=== PATIENT | male | born 1935 | race Caucasian/White ===

== ENCOUNTER → 2018-01-22 07:26 | Outpatient (CLI) | payer MEDICARE, SELFPAY ==
[2018-01-22 11:44] LABS: AST(SGOT) 23 U/L (15-37); Alanine Aminotransfer ALT/SGPT 21 U/L (16-61); Albumin, Serum 3.5 g/dL (3.2-5.0); Alkaline Phosphatase 78 U/L (45-117); Bilirubin, Direct 0.25 mg/dL (0.00-0.30); Cholesterol 119 mg/dL (200); Globulin 3.7 g/dL (2.2-4.2); High Density Lipoprotein 50 mg/dL; Protein, Total 7.2 g/dL (6.4-8.2); Triglycerides 93 mg/dL; Very Low Density Lipoprotein 19 mg/dL (5-40)
== END ==
PROVIDERS: Family Provider Family Medicine; PCP Family Medicine; Visit Provider Physician Assistant Medical
DX: E78.5 Hyperlipidemia, unspecified (principal); Z79.899 Other long term (current) drug therapy
CPT/HCPCS: 36415; 80061; 80076

== ENCOUNTER → 2018-07-06 08:18 | Outpatient (CLI) | payer MEDICARE, SELFPAY ==
[2018-01-25 09:07] VITALS: BMI 34.2
[2018-07-06 10:40] LABS: AST(SGOT) 23 U/L (15-37); Alanine Aminotransfer ALT/SGPT 25 U/L (16-61); Albumin, Serum 3.6 g/dL (3.2-5.0); Alkaline Phosphatase 86 U/L (45-117); Bilirubin, Direct 0.29 mg/dL (0.00-0.30); Cholesterol 139 mg/dL (200); Globulin 3.8 g/dL (2.2-4.2); High Density Lipoprotein 54 mg/dL; Protein, Total 7.4 g/dL (6.4-8.2); Triglycerides 99 mg/dL; Very Low Density Lipoprotein 20 mg/dL (5-40)
== END ==
PROVIDERS: Family Provider Family Medicine; PCP Family Medicine; Referring Provider Physician Assistant Medical; Visit Provider Physician Assistant Medical
DX: E78.5 Hyperlipidemia, unspecified (principal)
CPT/HCPCS: 36415; 80061; 80076

== ENCOUNTER → 2018-07-15 06:32 | Outpatient (CLI) | payer MEDICARE, SELFPAY ==
[2018-07-07 10:32] VITALS: BMI 34.7
--- NOTE | 2018-07-15 06:34 | ECHOCS_ITS ---
Reason For Study: CAD/ASHD Procedure This was a 2D Doppler, Color Flow transthoracic echocardiogram. The study was technically difficult. Contrast injection was performed. Exam performed in department. Left Ventricle Normal LV size. Segmental dysfunction with preserved ejection fraction (see wall motion). The estimated ejection fraction is 55 %. No evidence for diastolic dysfunction. Infero-Basal: Hypokinetic. Mid-Inferior: Hypokinetic. Mid-inferoseptal : Hypokinetic. Inferior [place] : Hypokinetic. Right Ventricle Normal RV size. Normal systolic function. [place]ria Normal left atrium. Normal right atrium. No doppler evidence for ASD. Mitral Valve There is no mitral annular calcification. Normal mitral valve. Trivial mitral valve insufficiency. Tricuspid Valve Normal tricuspid valve. Mild tricuspid valve insufficiency. Right ventricular systolic pressure estimated to be 33 mmHg. Aortic Valve Trisinus/trileaflet aortic valve. Mild focal aortic valve calcification. Trivial aortic valve insufficiency. Pulmonic Valve The pulmonic valve is not well visualized. Great Vessels Normal sized aortic root. Pericardium/Pleural No pericardial effusion. Medication 22 gauge I.V. with prn adaptor inserted into left arm. Diluted definity 4ml given slow IV push to enhance endocardial definition. MMode/2D Measurements & Calculations LVIDd: 4.7 cm IVSd: 1.1 cm Ao root diam: 3.7 cm LVIDs: 2.9 cm LVPWd: 1.1 cm LA dimension: 3.8 cm FS: 37.5 % LAV(MOD-bp): 37.9 ml LVAd ap4: 35.8 cm2 SV(MOD-sp4): 67.5 ml LAV(MOD-bp) Indexed: 17.4 ml/m2 EDV(MOD-sp4): 126.8 ml LAV(MOD-sp2): 35.2 ml EDV(sp4-el): 134.0 ml LAV(MOD-sp4): 40.4 ml LVAs ap4: 23.5 cm2 ESV(MOD-sp4): 59.2 ml ESV(sp4-el): 62.4 ml EF(MOD-sp4): 53.3 % EF(sp4-el): 53.4 % SV(sp4-el): 71.6 ml LA A4 area: 16.1 cm2 Time Measurements MV dec time: 0.40 sec Doppler Measurements & Calculations MV E max connor: 38.1 cm/sec Lat Peak E' Connor: 4.3 cm/sec Med Peak E' Connor: 4.7 cm/sec MV A max connor: 77.8 cm/sec E/E' lat: 9.0 E/E' med: 8.1 MV E/A: 0.49 MV V2 max: 79.6 cm/sec MV P1/2t max connor: 48.5 cm/sec Ao V2 max: 109.1 cm/sec MV max P.5 mmHg MV P1/2t: 92.8 msec Ao max P.8 mmHg MV V2 mean: 38.5 cm/sec Ao V2 mean: 75.3 cm/sec MV mean P.71 mmHg MV dec slope: 153.2 cm/sec2 Ao mean P.6 mmHg MV V2 VTI: 18.9 cm MVA(P1/2t): 2.4 cm2 Ao V2 VTI: 21.4 cm LV V1 max: 91.3 cm/sec PA V2 max: 94.4 cm/sec TR max connor: 273.5 cm/sec LV V1 max P.3 mmHg TR max P.9 mmHg LV V1 mean P.7 mmHg LV V1 mean: 61.1 cm/sec LV V1 VTI: 20.6 cm Interpretation Summary The study was technically difficult. Contrast injection was performed. Segmental dysfunction with preserved ejection fraction (see wall motion). The estimated ejection fraction is 55 %. Trivial mitral valve insufficiency. Mild tricuspid valve insufficiency. Mild focal aortic valve calcification. Trivial aortic valve insufficiency. Right ventricular systolic pressure estimated to be 33 mmHg. No evidence for diastolic dysfunction. Ordering Physician: Matthew Cunningham Referring Physician: Matthew Cunningham Performed By: Barrington Alvarenga [facility]
--- NOTE | 2018-07-15 10:00 | STRESSREP ---
Stress Test Report Date: 07/15/2018 Procedure: Exercise tolerance test/imaging study Indications: Shortness of breath/dyspnea on exertion; CAD; status post PCI Consent: Per the patient Procedure: The patient exercised on a Shaji protocol for 4 minutes completing Stage I and 1 minute of Stage II achieving a peak heart rate of 131 bpm (95 % predicted maximal heart rate) with a peak blood pressure 162/98 mmHg and a peak MET capacity of 5 METs. The baseline ECG demonstrated Normal sinus rhythm . The peak exercise ECG demonstrated somatic/motion artifact with no obvious ECG changes . There was a rare PVCs during exercise and recovery . The functional capacity was considered average . There was no complaint of chest discomfort during exercise or recovery. The examination was discontinued secondary to dyspnea . Impression: 1. Technically adequate (percent predicted maximal heart rate greater than 85%) exercise tolerance test 2. Peak exercise ECG Demonstrated somatic/motion artifact with no obvious ECG changes 3. There were no cardiac dysrhythmias pretest, during exercise, or recovery 4. Nuclear images pending Myocardial perfusion imaging study: Technique: The patient was injected with 14.3 mCi of technetium 99m Cardiolite and subsequently rest SPECT Cardiolite nuclear imaging was obtained in the horizontal long, vertical long, and short axis views. The patient exercised on a Shaji protocol for 4 minutes completing Stage 1 and 1 minute of Stage II achieving a peak heart rate of 131 bpm (95 % predicted maximal heart rate) with a peak blood pressure 162/98 mmHg and a peak MET capacity of 5 METs. The patient was injected with 44.7 mCi of technetium 99m Cardiolite and subsequently stress SPECT Cardiolite nuclear imaging was obtained in the horizontal long, vertical long, and short axis views. A gated Cardiolite study at peak stress was obtained. Interpretation: Rest and stress SPECT Cardiolite nuclear imaging status post realignment, normalization, and attenuation correction, demonstrates The appearance of a small area of subtle diminished tracer uptake near the lateral apical segments without significant change between rest and stress . There is end systolic thickening and brightening. The gated Cardiolite study demonstrates myocardial thickening and inward wall motion. The reported LVEF is 61 %. Impression: 1. Rest and stress SPECT Cardiolite nuclear imaging demonstrate a small area of subtle diminished tracer uptake near the lateral apical segments without significant change between rest and stress appearing compatible with physiologic apical thinning with no myocardial perfusion changes considered diagnostic for associated stress induced myocardial ischemia or previous myocardial injury/infarction . 2. The gated Cardiolite study reports an LVEF of 61 %. This note was generated with [employer] software. It may contain incorrect words, spelling, and punctuation that were not noted in checking the note before signing.
--- OUTSIDE RECORDS SUMMARY | 2018-09-18 18:56 | XMS RPT_ITS ---
:1935 Author Organization OHIP Care Team Providers Name Role Phone Donna Grossman Attending Unavailable Donna Grossman Referring Unavailable Jolliff, Melissa Primary Care Unavailable Matthew Cunningham Attending Unavailable Brianiff, Melissa Referring Unavailable Donna Grossman Attending Unavailable Donna Grossman Referring Unavailable Jolliff, Melissa Primary Care Unavailable Nolt, Kylie Attending Unavailable MoodisMatthew black Attending Unavailable Jolliff, Melissa Referring Unavailable Jolliff, Melissa Primary Care Unavailable MoodMatthew samuels Attending Unavailable Moodarvind Matthew Referring Unavailable Jolliff, Melissa Primary Care Unavailable PROBLEMS PROBLEMS DATE TYPE CONDITION / CODE ATTENDING STATUS SOURCE 07/07/2018 Unknown E78.5 - Matthew Cunningham Active [facility] Hyperlipidemia, Community unspecified / Hospital E78.5(ICD-10) Repository 07/07/2018 Unknown I25.10 - Matthew Cunningham Active [facility] Atherosclerotic heart Community disease of [facility] coronary artery Repository without angina pectoris / I25.10(ICD-10) 07/07/2018 Unknown Z98.61 - Coronary Matthew Cunningham Active [facility] angioplasty status / Community Z98.61(ICD-10) Hospital Repository 07/07/2018 Unknown I48.0 - Paroxysmal Matthew Cunningham Active [facility] atrial fibrillation / Community I48.0(ICD-10) Hospital Repository PROCEDURES PROCEDURES No Procedure Records FoundRESULTS RESULTS ECHO, COMPLETE W/ Observed: 07/15/2018 Status: F Source: [place] CONTRAST 8:08 PM [facility] [place] [facility] Cardiovascular Services [address] [place] [address] Echo Complete W/ Contrast 07/15/18 0851 MR#: [id number] Acct: [id number] Name: MATTHEW VALENZUELA Rep #: [id number] : 1935 82 From: Matthew Cunningham MD Attending Dr: Matthew Cunningham MD Status: REG CLI Ordering Dr: Matthew Cunningham MD Date: 07/15/18 Location: [facility] Sex: M C Admitted: Reason For Study: CAD/ASHD Procedure This was a 2D Doppler, Color Flow transthoracic echocardiogram. The study was technically difficult. Contrast injection was performed. Exam performed in department. Left Ventricle Normal LV size. Segmental dysfunction with preserved ejection fraction (see wall motion). The estimated ejection fraction is 55 %. No evidence for diastolic dysfunction. Infero-Basal: Hypokinetic. Mid-Inferior: Hypokinetic. Mid-inferoseptal : Hypokinetic. Inferior [place] : Hypokinetic. Right Ventricle Normal RV size. Normal systolic function. Atria Normal left atrium. Normal right atrium. No doppler evidence for ASD. Mitral Valve There is no mitral annular calcification. Normal mitral valve. Trivial mitral valve insufficiency. Tricuspid Valve Normal tricuspid valve. Mild tricuspid valve insufficiency. Right ventricular systolic pressure estimated to be 33 mmHg. Aortic Valve Trisinus/trileaflet aortic valve. Mild focal aortic valve calcification. Trivial aortic valve insufficiency. Pulmonic Valve The pulmonic valve is not well visualized. Great Vessels Normal sized aortic root. Pericardium/Pleural No pericardial effusion. Medication 22 gauge I.V. with prn adaptor inserted into left arm. Diluted definity 4ml given slow IV push to enhance endocardial definition. MMode/2D Measurements AND Calculations LVIDd: 4.7 cm IVSd: 1.1 cm Ao root diam: 3.7 cm LVIDs: 2.9 cm LVPWd: 1.1 cm LA dimension: 3.8 cm FS: 37.5 % LAV(MOD-bp): 37.9 ml LVAd ap4: 35.8 cm2 SV(MOD-sp4): 67.5 ml LAV(MOD-bp) Indexed: 17.4 ml/m2 EDV(MOD-sp4): 126.8 ml LAV(MOD-sp2): 35.2 ml EDV(sp4-el): 134.0 ml LAV(MOD-sp4): 40.4 ml LVAs ap4: 23.5 cm2 ESV(MOD-sp4): 59.2 ml ESV(sp4-el): 62.4 ml EF(MOD-sp4): 53.3 % EF(sp4-el): 53.4 % SV(sp4-el): 71.6 ml LA A4 area: 16.1 cm2 Time Measurements MV dec time: 0.40 sec Doppler Measurements AND Calculations MV E max connor: 38.1 cm/sec Lat Peak E' Connor: 4.3 cm/sec Med Peak E' Connor: 4.7 cm/sec MV A max connor: 77.8 cm/sec E/E' lat: 9.0 E/E' med: 8.1 MV E/A: 0.49 MV V2 max: 79.6 cm/sec MV P1/2t max connor: 48.5 cm/sec Ao V2 max: 109.1 cm/sec MV max P.5 mmHg MV P1/2t: 92.8 msec Ao max P.8 mmHg MV V2 mean: 38.5 cm/sec Ao V2 mean: 75.3 cm/sec MV mean P.71 mmHg MV dec slope: 153.2 cm/sec2 Ao mean P.6 mmHg MV V2 VTI: 18.9 cm MVA(P1/2t): 2.4 cm2 Ao V2 VTI: 21.4 cm LV V1 max: 91.3 cm/sec PA V2 max: 94.4 cm/sec TR max connor: 273.5 cm/sec LV V1 max P.3 mmHg TR max P.9 mmHg LV V1 mean P.7 mmHg LV V1 mean: 61.1 cm/sec LV V1 VTI: 20.6 cm Interpretation Summary The study was technically difficult. Contrast injection was performed. Segmental dysfunction with preserved ejection fraction (see wall motion). The estimated ejection fraction is 55 %. Trivial mitral valve insufficiency. Mild tricuspid valve insufficiency. Mild focal aortic valve calcification. Trivial aortic valve insufficiency. Right ventricular systolic pressure estimated to be 33 mmHg. No evidence for diastolic dysfunction. Ordering Physician: Matthew Cunningham Referring Physician: Matthew Cunningham Performed By: Barrington Alvarenga RCS 07/15/182007 Date Matthew Cunningham MD CC: Melissa Cui MD; Matthew Cunningham MD Date Dictated: 07/15/18850 Date Transcribed: 07/15/182007 Sports Clerk: Signed STRESS REPORT Observed: 07/15/2018 Status: F Source: [place] 10:06 AM [facility] [place] [facility] Cardiovascular Services [facility] [place] [address] MR#: [id number] Acct: [id number] Name: MATTHEW VALENZUELA Rep #: [id number] : 1935 82 From: Matthew Cunningham MD Primary Care: Melissa Cui MD Status: REG CLI Ordering Dr: Sex: M C Stress Test Report Date: 07/15/2018 Procedure: Exercise tolerance test/imaging study Indications: Shortness of breath/dyspnea on exertion; CAD; status post PCI Consent: Per the patient Procedure: The patient exercised on a Shaji protocol for 4 minutes completing Stage I and 1 minute of Stage II achieving a peak heart rate of 131 bpm (95 % predicted maximal heart rate) with a peak blood pressure 162/98 mmHg and a peak MET capacity of 5 METs. The baseline ECG demonstrated Normal sinus rhythm . The peak exercise ECG demonstrated somatic/motion artifact with no obvious ECG changes . There was a rare PVCs during exercise and recovery . The functional capacity was considered average . There was no complaint of chest discomfort during exercise or recovery. The examination was discontinued secondary to dyspnea . Impression: 1. Technically adequate (percent predicted maximal heart rate greater than 85%) exercise tolerance test 2. Peak exercise ECG Demonstrated somatic/motion artifact with no obvious ECG changes 3. There were no cardiac dysrhythmias pretest, during exercise, or recovery 4. Nuclear images pending Myocardial perfusion imaging study: Technique: The patient was injected with 14.3 mCi of technetium 99m Cardiolite and subsequently rest SPECT Cardiolite nuclear imaging was obtained in the horizontal long, vertical long, and short axis views. The patient exercised on a Shaji protocol for 4 minutes completing Stage 1 and 1 minute of Stage II achieving a peak heart rate of 131 bpm (95 % predicted maximal heart rate) with a peak blood pressure 162/98 mmHg and a peak MET capacity of 5 METs. The patient was injected with 44.7 mCi of technetium 99m Cardiolite and subsequently stress SPECT Cardiolite nuclear imaging was obtained in the horizontal long, vertical long, and short axis views. A gated Cardiolite study at peak stress was obtained. Interpretation: Rest and stress SPECT Cardiolite nuclear imaging status post realignment, normalization, and attenuation correction, demonstrates The appearance of a small area of subtle diminished tracer uptake near the lateral apical segments without significant change between rest and stress . There is end systolic thickening and brightening. The gated Cardiolite study demonstrates myocardial thickening and inward wall motion. The reported LVEF is 61 %. Impression: 1. Rest and stress SPECT Cardiolite nuclear imaging demonstrate a small area of subtle diminished tracer uptake near the lateral apical segments without significant change between rest and stress appearing compatible with physiologic apical thinning with no myocardial perfusion changes considered diagnostic for associated stress induced myocardial ischemia or previous myocardial injury/infarction . 2. The gated Cardiolite study reports an LVEF of 61 %. This note was generated with Your[employer] software. It may contain incorrect words, spelling, and punctuation that were not noted in checking the note before signing. 07/15/18 1006 <Electronically signed by Matthew Cunningham MD> Date Matthew Cunningham MD CC: Melissa Cui MD; Matthew Cunningham MD Date Dictated: 07/15/18 1000 Date Transcribed: 07/15/18 1000 Sports Clerk: PM Signed CARDIOLOGY VISIT Observed: 07/07/2018 Status: F Source: [place] REPORT 11:09 AM [facility] [place] [facility] [address] [place] [address] OFFICE VISIT Date of Service: 07/07/18 MR#: [id number] Acct: [id number] Name: MATTHEW VALENZUELA Rep #: [id number] : 1935 Provider: Matthew Cunningham MD Age/Sex: 82/M Location: [facility] [place] Status: Signed HPI HPI Details: MATTHEW VALENZUELA, is a 82 M who presents to the office today for outpatient cardiovascular follow-up. He notes his main concern is shortness of breath/dyspnea on exertion. He does not experience chest discomfort. There is been no orthopnea or PND or worsening peripheral pitting edema. There has been no near syncope or syncope. His lipid labs were checked yesterday. His total cholesterol was 139 with an LDL of 65 and HDL 54. His triglycerides were 99. Intake Vital Signs07/07/18 Height 5 ft 8 in 07/07/18 Weight: 228 lb 07/07/18 Body Mass Index (BMI) 34.7 07/07/18 Blood Pressure 124/84 H Intake Visit Reasons: 6 m fu Allergies clopidogrel [From Plavix] Allergy (Intermediate, Verified 07/07/18 10:32) Unknown Penicillins [PCN] Allergy (Verified 07/07/18 10:32) Swelling venom-honey bee [bee venom (honey bee)] Adverse Reaction (Verified 07/07/18 10:32) Other Medications lisinopril 5 mg tablet 5 mg PO DAILY #90 tab 12/17/17 [Rx Confirmed 07/07/18] antiarthritic combination no.2 900 mg tablet 900 mg PO QDAY tab 01/25/18 [History Confirmed 07/07/18] aspirin 325 mg tablet 325 mg PO QDAY 01/25/18 [History Confirmed 07/07/18] ibuprofen-diphenhydramine citrate 200 mg-38 mg tablet 2 cap PO QHS PRN 01/25/18 [History Confirmed 07/07/18] atorvastatin 80 mg tablet 80 mg PO QHS #90 tab 03/08/18 [Rx Confirmed 07/07/18] metoprolol succinate ER 25 mg tablet,extended release 24 hr 12.5 mg PO DAILY #45 tab 04/20/18 [Rx Confirmed 07/07/18] multivitamin tablet 1 tab PO DAILY 07/07/18 [History Confirmed 07/07/18] [facility] Medical History Patent foramen ovale (Chronic) History of myocardial infarction (Resolved) Paroxysmal atrial fibrillation (Chronic) 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 (Chronic) Hyperlipidemia (Chronic) Left bundle branch block (Chronic) Osteoarthritis (Chronic) Surgical History History of percutaneous transluminal coronary angioplasty (Chronic 10/2009) History of appendectomy (Resolved) History of bilateral knee replacement (Resolved) History of left inguinal hernia repair (Resolved) Social History Smoking Status: Never smoker alcohol intake: current caffeine: Yes ROS Const Const: Negative for fatigue, weakness, weight gain, weight loss, frequent falls or excessive sweating Eyes Eyes: Negative for change in vision, blurry vision or transient loss of vision ENT ENT: Negative for dizziness or balance problems Cardio Chest Pain: No Palpitations: No Edema: None Muscle aches with walking: None Resp Respiratory: Positive for SOB with activity (increased last year going up/downstairs); negative for SOB at rest GI GI: Negative vomiting or vomiting blood/hematemesis : Negative for hematuria Musc Musc: Negative for balance problems, muscle aches/ myalgia, muscle weakness or joint pain Skin Skin: Negative non-healing lesions or rash Neuro Neuro: Negative for weakness, blurry vision, dizziness, lightheadedness, frequent falls or orthostatic symptoms Amaury Hematologic/Lymphatic: Negative for easy bleeding Endo Endo: Negative for fatigue or excessive sweating Psych Psych: Negative for anxiety or depression Allergy Allergy/Immunology: Negative for hives, Negative for rash Cardiology Exam Const Appearance: cooperative, healthy appearing, comfortable, no acute distress, well developed and well groomed Nutritional Appearance: overweight Orientation: alert and oriented x3 Head Head: normal to inspection, normocephalic and atraumatic Ears: hearing grossly normal bilaterally Nose: external nose normal Eyes Eyelids: eyelids normal Conjunctivae: conjunctivae normal Pupils: PERRL EOM: EOM intact bilaterally Neck Neck: normal visual inspection and full ROM Carotids: normal carotid upstroke Chest Chest inspection: normal inspection of the chest and symmetric chest movement Auscultation: Bilateral: Clear to Auscultation Cardio Palpation: normal PMI Rhythm: regular rhythm Heart sounds: S1 normal, S2 normal and positive S4 GI GI: normal to inspection, bowel sounds present and soft Neuro General: alert, awake, oriented x3, gait normal, moves all extremities, no focal sensory deficit and no focal motor deficits Skin Skin: no rashes or lesions noted Extremities Pulses: Normal: Right Radial Pulse, Left Radial Pulse Lower Extremity Edema: +1: Left, Trace: Right Psych Psychological: normal affect Assessment AND Plan 1. Atherosclerosis of benton coronary artery of benton heart without angina pectoris I25.10 Plan At the present time it is unclear whether his shortness of breath is related to his cardiovascular disease process and would be considered an angina pectoris equivalent. Based upon his concerns superimposed on his known cardiovascular disease process it was felt prudent that he be reassessed for any changes in his left ventricular wall motion or systolic function or his coronary physiology. Thus he will undergo further evaluation with a transthoracic echocardiogram and an exercise tolerance test/imaging study. Depending upon the findings he may or may not need reevaluation in the cardiac catheterization laboratory Orders Orders: 2. H/O percutaneous transluminal coronary angioplasty Z98.61 RCA Plan He does have a history of remote RCA PCI. Again he will continue evaluation care as noted above. Orders Orders: 3. Paroxysmal atrial fibrillation I48.0 Plan He has had no recurrence of his history of paroxysmal atrial fibrillation. He will continue his current medical management and follow-up Orders Orders: 4. Hyperlipidemia, unspecified hyperlipidemia type E78.5 Plan His lipid profile was reviewed. He will continue medical management. He will have his lipids assessed again in approximately 6 months Orders Orders: Plan Detail Additional Comments Thank you for allowing me to participate in the care of your patient. Please don't hesitate to call if any issues arise. This note was generated using a voice recognition system and there may be incorrect words, spelling or punctuation that were not noted when reviewing the office note prior to saving. 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 Coronary Disease-Associated Artery/Lesion type: benton artery H/O percutaneous transluminal coronary angioplasty Z98.61 Paroxysmal atrial fibrillation I48.0 Hyperlipidemia, unspecified hyperlipidemia type E78.5 Hyperlipidemia type: unspecified Coding Level of Care Code Off vis,est,level 4 Diagnoses Atherosclerosis of benton coronary artery of benton heart without angina pectoris I25.10 Coronary Disease-Associated Artery/Lesion type: benton artery H/O percutaneous transluminal coronary angioplasty Z98.61 Paroxysmal atrial fibrillation I48.0 Hyperlipidemia, unspecified hyperlipidemia type E78.5 Hyperlipidemia type: unspecified Supplemental Info Supplemental Information Labs LDL Cholesterol 65 mg/dL (0-130) 07/06/18 HDL Cholesterol 54 mg/dL (40-) 07/06/18 Triglycerides 99 mg/dL (-199) 07/06/18 VLDL Cholesterol 20 mg/dL (5-40) 07/06/18 07/07/18 1109 <Electronically signed by Matthew Cunningham MD> Date Matthew Cunningham MD Cosigner Signature: Date (if applicable) CC: Melissa Cui MD LIVER PROFILE Collected: 07/06/2018 Status: F Source: [place] 8:21 AM [facility] [place] TYPE CODE TESTS RESULT OUT OF RANGE REFERENCE UNITS LAB L501.1500 6.4-8.2 g/dL Normal T PROT 7.4 LAB L501.1800 3.2-5.0 g/dL Normal ALB 3.6 LAB L501.1950 2.2-4.2 g/dL Normal GLOB 3.8 LAB L501.4100 15-37 U/L Normal AST 23 LAB L501.4305 45-117 U/L Normal ALK P 86 LAB L501.4405 16-61 U/L Normal ALT 25 LAB L501.4600 0.20-1.00 mg/dL Normal T BILI 0.90 LAB L501.4700 0.00-0.30 mg/dL Normal D BILI 0.29 Performed By: #### L500.3400, L500.4100 #### [facility] [address] [place], [address] LIPID PROFILE Collected: 07/06/2018 Status: F Source: [place] 8:21 AM [facility] [place] TYPE CODE TESTS RESULT OUT OF RANGE REFERENCE UNITS LAB L501.4900 200 mg/dL Normal CHOL 139 Result Comment: <200 mg/dL Desirable 200-240 mg/dL Borderline >240 mg/dL High Risk LAB L501.5000 mg/dL Normal TRIG 99 Result Comment: The drugs N-Acetylcysteine and Metamizole may falsely depress this assay. Serum Triglycerides Reference Interval Normal <150 mg/dL Borderline high 150 - 199 mg/dL High 200 - 499 mg/dL Very High > or = 500 mg/dL LAB L501.6400 mg/dL Normal HDL 54 Result Comment: The drugs N-Acetylcysteine and Metamizole may falsely depress this assay. Reference Range HDL <40 mg/dL Low HDL Cholesterol HDL >or= 60 mg/dL High HDL Cholesterol LAB L501.6500 0-130 mg/dL Normal LDL 65 LAB L501.6600 5-40 mg/dL Normal VLDL 20 Performed By: #### L500.3400, L500.4100 #### [facility] [address] [place], [address] CARDIOLOGY VISIT Observed: 01/25/2018 Status: F Source: [place] REPORT 10:00 AM [facility] [place] [facility] [address] [place] [address] OFFICE VISIT Date of Service: 01/25/18 MR#: [id number] Acct: [id number] Name: MATTHEW VALENZUELA Rep #: [id number] : 1935 Provider: Matthew Cunningham MD Age/Sex: 82/M Location: [facility] [place] Status: Signed HPI HPI Details: MATTHEW VALENZUELA, is a 82 M who presents to the office today for for outpatient cardiovascular follow-up of his history of underlying CAD status post RCA BMS, perioperative related paroxysmal atrial fibrillation/flutter, and hyperlipidemia. Overall since his last outpatient visit from 05/05/2017 he states he has been doing well. He has remained active. He has had no resting or exertional concerns suspicious for angina pectoris. There has been no evidence of CHF or malaria edema. He has had chronic lower extremity peripheral pitting edema especially the left ankle without significant change. There has been no near syncope or syncope. He has not required additional cardiovascular testing other than his lipid profile. This was performed recently. His lipid profile appear to be under good control based upon findings of a total cholesterol of 119 with an LDL of 50 and an HDL of 50 and a triglyceride level of 93. Intake Vital Signs01/25/18 Height 5 ft 8 in 01/25/18 Weight: 225 lb 01/25/18 Body Mass Index (BMI) 34.2 01/25/18 Blood Pressure 124/80 Intake Visit Reasons: 6 M FU Allergies clopidogrel [From Plavix] Allergy (Intermediate, Verified 01/25/18 09:07) Unknown Penicillins [PCN] Allergy (Verified 01/25/18 09:07) Swelling venom-honey bee [bee venom (honey bee)] Adverse Reaction (Verified 01/25/18 09:07) Other Medications Atorvastatin Calcium [Lipitor] 80 mg PO QHS 04/06/15 [History Confirmed 01/25/18] Metoprolol(XL)Succ [Toprol Xl (Beta Bessy)] 25 mg PO DAILY 04/06/15 [History Confirmed 01/25/18] lisinopril 5 mg tablet 5 mg PO DAILY #90 tab 12/17/17 [Rx Confirmed 01/25/18] antiarthritic combination no.2 900 mg tablet 900 mg PO QDAY tab 01/25/18 [History Confirmed 01/25/18] aspirin 325 mg tablet 325 mg PO QDAY 01/25/18 [History Confirmed 01/25/18] ibuprofen-diphenhydramine citrate 200 mg-38 mg tablet 2 cap PO QHS PRN 01/25/18 [History Confirmed 01/25/18] [facility] Medical History Patent foramen ovale (Chronic) History of myocardial infarction (Resolved) Paroxysmal atrial fibrillation (Chronic) 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 (Chronic) Hyperlipidemia (Chronic) Left bundle branch block (Chronic) Osteoarthritis (Chronic) Surgical History History of percutaneous transluminal coronary angioplasty (Chronic 10/2009) History of appendectomy (Resolved) History of bilateral knee replacement (Resolved) History of left inguinal hernia repair (Resolved) Social History Smoking Status: Never smoker alcohol intake: current caffeine: Yes ROS Const Const: Positive for fatigue (slight); negative for weakness, weight gain, weight loss, frequent falls or excessive sweating Eyes Eyes: Negative for change in vision, blurry vision or transient loss of vision ENT ENT: Negative for dizziness or balance problems Cardio Chest Pain: No Edema: Left (slight ankle) Muscle aches with walking: None Resp Respiratory: Positive for SOB with activity (slight at baseline); negative for SOB at rest GI GI: Negative vomiting or vomiting blood/hematemesis : Negative for hematuria Musc Musc: Negative for balance problems, muscle aches/ myalgia, muscle weakness or joint pain Skin Skin: Negative non-healing lesions or rash Neuro Neuro: Negative for weakness, blurry vision, dizziness, lightheadedness, frequent falls or orthostatic symptoms Amaury Hematologic/Lymphatic: Negative for easy bleeding Endo Endo: Positive for fatigue (slight); negative for excessive sweating Psych Psych: Negative for anxiety or depression Allergy Allergy/Immunology: Negative for hives, Negative for rash Cardiology Exam Const Appearance: cooperative, healthy appearing, comfortable, no acute distress, well developed and well groomed Nutritional Appearance: overweight Orientation: alert and oriented x3 Head Head: normal to inspection, normocephalic and atraumatic Ears: hearing grossly normal bilaterally Nose: external nose normal Eyes Eyelids: eyelids normal Conjunctivae: conjunctivae normal Pupils: PERRL EOM: EOM intact bilaterally Neck Neck: normal visual inspection and full ROM Carotids: normal carotid upstroke Chest Chest inspection: normal inspection of the chest and symmetric chest movement Auscultation: Bilateral: Clear to Auscultation Cardio Palpation: normal PMI Rhythm: regular rhythm Heart sounds: S1 normal, S2 normal and positive S4 GI GI: normal to inspection, bowel sounds present, soft and no hepatosplenomegaly Neuro General: alert, awake, oriented x3, gait normal, moves all extremities, no focal sensory deficit and no focal motor deficits Skin Skin: no rashes or lesions noted Extremities Pulses: Normal: Right Radial Pulse, Left Radial Pulse Lower Extremity Edema: +1: Left, Trace: Right Psych Psychological: normal affect Supplemental Info His last transthoracic echocardiogram was on 07/10/2011. The results are as noted below. Interpretation Summary The study was technically difficult. Segmental dysfunction with preserved ejection fraction (see wall motion). The estimated ejection fraction is 55 %. Mild (1+) mitral valve insufficiency. Trivial tricuspid valve insufficiency. Mild diffuse aortic valve thickening. Trivial pulmonic valve insufficiency. Right ventricular systolic pressure estimated to be 29 mmHg. Comment: The TTE from 12/12/19 10 demonstrated a positive agitated saline contrast study for a faint right to left interatrial shunt c/w a small PFO vs. ASD. His last stress test was performed on 07/10/2011. The results are as noted below. TECHNIQUE The patient was injected with 14.7 mCi of Tc99m Cardiolite and subsequently rest SPECT Cardiolite nuclear imaging was obtained in the horizontal long, vertical long, and short axes views. The patient exercised on a Shaji protocol for 6 minutes achieving a peak heart rate of 137 beats per minute (95 /s predicted maximum heart rate) with a peak blood pressure of 158/90 mmHg and a peak MET capacity of approximately 7 METs. The patient was injected with 44.1 mCi of Tc99m Cardiolite and subsequently stress SPECT Cardiolite nuclear imaging was obtained in the horizontal long, vertical long, and short axes views. Gated Cardiolite study at peak stress was obtained. INTERPRETATION Rest and stress SPECT Cardiolite nuclear imaging demonstrate an element of diminished myocardial perfusion/tracer uptake ranging from the basal inferoseptal/basal inferior wall to the mid to distal inferior and inferoapical/lateral apical segments. This appears without significant change between rest and stress. There are similar type findings on the resting and stress polar map images. There is end systolic thickening and brightening and on the gated Card iolite study myocardial thickening and inward wall motion. The reported LVEF is 61 %. The aforementioned changes maybe compatible with soft tissue attenuation/artifact, however, en element of previous myocardial injury/infarction cannot necessarily be excluded. There are no myocardial perfusion changes considered diagnostic for stress induced myocardial ischemia. IMPRESSION 1. Rest and SPECT Cardiolite nuclear imaging demonstrate myocardial perfusion changes potentially compatible with soft tissue attenuation/artifact, however, an element of previous myocardial injury/infarction involving portions of the basal inferoseptal/basal inferior segment extending through the mid to distal inferior, inferoapical and lateral apical segments cannot be excluded. 2. There are no myocardial perfusion changes considered diagnostic for associated stress induced myocardial ischemia. 3. The gated Cardiolite study reports an LVEF of 61%. His cardiac catheterization was performed at [facility] on 11/19/2009. Per the report his left ventricle was thought to be normal with an LVEF of 50%, he had a right dominant system, the LCx had discrete luminal irregularities of 40%, the RCA had a complex thrombus with 99% stenosis, he underwent BMS to the RCA. There was a comment that he had no obstructive coronary artery disease of the left coronary artery. There was also a comment that he had a tortuous right common iliac artery requiring the use of a long sheath. A Holter monitor was performed on 01/05/2012. The results are as noted below. THIS HELEN 24 HOUR HOLTER SCAN. SINUS RHYTHM, *AVERAGE HEART RATE 60 BPM. MINIMUM HEART RATE 428PM AT 12:40 AM. *AVERAGE HEART RATE 608PM. MAXIMUM HEART RATE 114 BPM AT 5:54 PM. NO ACTIVITY RECORDED AT THIS EXACT TIME. RARE PREMATURE ATRIAL COMPLEXES. 22 ATRIAL COUPLETS. 34 BEATS IN ATRIAL TRIGMEINY. 15 ATRIAL RUNS. THE LONGEST RUN OF PROBABLE ECTOPIC ATRIAL TACHYCARDIA WAS 11 BEATS, 107 8PM AT 2:00 AM. THE FASTEST RUN OF PROBABLE ECTOPIC ATRIAL TACHYCARDIA WAS 4 BEATS, 130 8PM AT 10:13 AM. RARE PREMATURE VENTRICULAR COMPLEXES. ONE VENTRICULAR COULET. NO RUNS. NO SYMPTOMS RECORDED IN PT. DIARY. Assessment AND Plan 1. 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 He will continue risk factor modification and medical management. 2. H/O percutaneous transluminal coronary angioplasty Z98.61 RCA Plan He does have a history of previous PCI as previously noted. He appears without obvious change in his clinical status. He will continue medical management and follow 3. Paroxysmal atrial fibrillation I48.0 Plan He has had no obvious recurrence of his perioperative related paroxysmal atrial fibrillation. He will continue his current medical management and follow-up. Plan Detail Additional Comments He will be scheduled for fasting lipid profile in approximately 6 months. He will be scheduled for an outpatient visit as well. He will notify the office of any concerns in the interim. Thank you for allowing me to participate in the care of your patient. Please don't hesitate to call if any issues arise. This note was generated using a voice recognition system and there may be incorrect words, spelling or punctuation that were not noted when reviewing the office note prior to saving. 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 TYPE CODE TESTS RESULT OUT OF RANGE REFERENCE UNITS LAB L501.1500 6.4-8.2 g/dL Normal T PROT 7.2 LAB L501.1800 3.2-5.0 g/dL Normal ALB 3.5 LAB L501.1950 2.2-4.2 g/dL Normal GLOB 3.7 LAB L501.4100 15-37 U/L Normal AST 23 LAB L501.4305 45-117 U/L Normal ALK P 78 LAB L501.4405 16-61 U/L Normal ALT 21 LAB L501.4600 0.20-1.00 mg/dL Normal T BILI 0.90 LAB L501.4700 0.00-0.30 mg/dL Normal D BILI 0.25 Performed By: #### L500.3400 #### [facility] [address] [place], [place], [id number] LIPID PROFILE Collected: 01/22/2018 Status: F Source: ALYSHA 7:33 AM [facility] [place] [facility] Order Comment: Order Date: 05/05/17 Order Info: [id number] - *Hepatic Function Panel Order Info: [id number] - *Lipid Profile CC PCP Comments: 12 hours fasting, may have water. TYPE CODE TESTS RESULT OUT OF RANGE REFERENCE UNITS LAB L501.4900 200 mg/dL Normal CHOL 119 Result Comment: <200 mg/dL Desirable 200-240 mg/dL Borderline >240 mg/dL High Risk LAB L501.5000 mg/dL Normal TRIG 93 Result Comment: The drugs N-Acetylcysteine and Metamizole may falsely depress this assay. Serum Triglycerides Reference Interval Normal <150 mg/dL Borderline high 150 - 199 mg/dL High 200 - 499 mg/dL Very High > or = 500 mg/dL LAB L501.6400 mg/dL Normal HDL 50 Result Comment: The drugs N-Acetylcysteine and Metamizole may falsely depress this assay. Reference Range HDL <40 mg/dL Low HDL Cholesterol HDL >or= 60 mg/dL High HDL Cholesterol LAB L501.6500 0-130 mg/dL Normal LDL 50 LAB L501.6600 5-40 mg/dL Normal VLDL 19 Performed By: #### L500.4100 #### [facility] [address] [place], [address] ALLERGIES ALLERGIES DATE TYPE / CODE NAME / CODE REACTION SEVERITY SOURCE 07/07/2018 Drug Penicillins/ Swelling Unknown [facility] Allergy/4160 [id number]( Hospital 26941(SNOMED XNORM) Repository CT) 07/07/2018 Drug venom-honey Other Unknown [facility] Allergy/4160 bee/[id number] Hospital 15038(SNOMED 98(RXNORM) Repository CT) 07/07/2018 Drug clopidogrel/ Unknown [place] [facility] Allergy/4160 [id number]( Hospital 32333(SNOMED XNORM) Repository CT) ENCOUNTERS ENCOUNTERS ADMIT/DISCHARGE ACCOUNT ADMITTING ENCOUNTER LOCATION SOURCE NUMBER CLASS 07/15/2018 [id number] Ambulatory Alysha Alysha 2 [facility] ing:[facility] Repository 07/07/2018/ [id number] Ambulatory BMSBuilding:B Alysha [address] [facility] Repository 07/06/2018 [id number] Ambulatory [place] Alysha 9 [facility] ing:[facility] Repository 01/25/2018/ [id number] Ambulatory BMSBuilding:B [place] [address] [facility] Repository 01/22/2018 [id number] Ambulatory BMSBuilding:B [place] [address] [facility] Repository 01/22/2018 [id number] Ambulatory Aly[place] 2 [facility] ing:[facility] Repository PAYERS PAYERS ENCOUNTER GUARANTOR PAYER SUBSCRIBER SOURCE 07/15/2018 MATTHEW R Primary MATTHEW Encarnacion [id number] E Insurance:AETNA MILOMANDOB: [facility] Number: [id number]8FHGEffective Repository [address]Mku: ([phone]) Date:1305-60-16LR [phone] (HP) [id number] [place] [address]BX: 07/15/2018 Secondary NOT GIVENUNK Alysha Insurance:SELF PAY [facility] Number: Effective Repository Date:2018-07-07 07/07/2018 MATTHEW R Primary MATTHEW Encarnacion [id number] E Insurance:AETNA MILOMANDOB: [facility] Number: [id number] HospitalBD8FHGEffective Repository [address]Skw: [phone]) Date:9547-93-79NL [phone] (HP) [id number] [place] [address]AK: 07/07/2018 Secondary NOT GIVENUNK Alysha Insurance:SELF PAY [facility] Number: Effective Repository Date:2018-07-07 07/06/2018 MATTHEW R Primary MATTHEW Encarnacion [id number] E Insurance:AETNA MILOMANDOB: [facility] Number: [id number] HospitalBD8FHGEffective Repository [address]Oey: [phone]) Date:2848-89-57BI [phone] (HP) [id number] [place] [address]UJ: 07/06/2018 Secondary NOT GIVENUNK [place] Insurance:SELF PAY [facility] Number: Effective Repository Date:2018-07-06 01/25/2018 MATTHEW R Primary MATTHEW Encarnacion [id number] E Insurance:AETNA KAUFFMANDOB: [facility] Number: [id number], [place] [id number] Repository [address]Lnx: ([phone]) Date:7921-36-54FA [phone] (HP) [id number] [place] [address]WU: 01/25/2018 Secondary NOT GIVENUNK [place] Insurance:SELF PAY [facility] Number: Effective Repository Date:2017-06-17 01/22/2018 Matthew R Primary Matthew Encarnacion [id number] E Insurance:AETNA MilomanDOB: [facility] Number: [id number], [place] [id number] Repository [address]Hro: ([phone]) Date:5702-91-72PX [phone] (HP) [id number] [place] [address]BG: 01/22/2018 Secondary NOT GIVENUNK Alysha Insurance:SELF PAY [facility] Number: Effective Repository Date:2018-01-22 01/22/2018 Matthew R Primary Matthew Encarnacion [id number] E Insurance:AETNA MilomanDOB: [facility] Number: [id number], [place] [id number] Repository [address]Kkm: ([phone]) Date:7199-02-90VE [phone] (HP) [id number] [place] [address]YY: 01/22/2018 Secondary NOT GIVENUNK [place] Insurance:SELF PAY [facility] Number: Effective Repository Date:2018-01-22
== END ==
PROVIDERS: Family Provider Family Medicine; PCP Family Medicine; Referring Provider Internal Medicine Cardiovascular Disease; Visit Provider Internal Medicine Cardiovascular Disease
DX: I25.10 Atherosclerotic heart disease of native coronary artery without angina pectoris (principal); I48.0 Paroxysmal atrial fibrillation; E78.5 Hyperlipidemia, unspecified; Z98.61 Coronary angioplasty status
CPT/HCPCS: 78452; 93017; 93306; A9500; Q9957; A4216; C8929

== ENCOUNTER → 2019-01-13 08:34 | Outpatient (CLI) | payer MEDICARE, SELFPAY ==
[2018-07-07 10:32] VITALS: BMI 34.7
[2019-01-13 10:25] LABS: AST(SGOT) 18 U/L (15-37); Alanine Aminotransfer ALT/SGPT 20 U/L (16-61); Albumin, Serum 3.6 g/dL (3.2-5.0); Alkaline Phosphatase 84 U/L (45-117); Bilirubin, Direct 0.28 mg/dL (0.00-0.30); Cholesterol 135 mg/dL (200); Globulin 3.7 g/dL (2.2-4.2); High Density Lipoprotein 56 mg/dL; Protein, Total 7.3 g/dL (6.4-8.2); Triglycerides 94 mg/dL; Very Low Density Lipoprotein 19 mg/dL (5-40)
== END ==
PROVIDERS: Physician Assistant Medical; Family Provider Family Medicine; PCP Family Medicine; Referring Provider Internal Medicine Cardiovascular Disease; Visit Provider Internal Medicine Cardiovascular Disease
DX: E78.5 Hyperlipidemia, unspecified (principal)
CPT/HCPCS: 36415; 80061; 80076

== ENCOUNTER 2019-02-17 14:59 | Emergency (ER) | payer MEDICARE, SELFPAY ==
[2019-02-17 15:00] VITALS: BP 156/99; PULSE 71; RESP 16; TEMP 37.1; O2SAT 94; BMI 34.4
--- NOTE | 2019-02-17 16:40 | CT_ITS ---
STUDY: CT ABDOMEN AND PELVIS WITH CONTRAST REASON FOR EXAM: Male, 83 years old. Left flank pain RADIATION DOSAGE (If Supplied By Facility): CTDIvol = ( 16.48 ) mGy, DLP = ( 1242.53 ) mGycm TECHNIQUE: Transaxial images were obtained from the dome of the diaphragm to the symphysis pubis without oral contrast. 100 IV Isovue 300 was administered. Sagittal and coronal images were reconstructed. Individualized dose optimization techniques were used for this CT. COMPARISON: April 06, 2015 report only FINDINGS: Minor atelectasis within the dependent portion of the lungs.. Multivessel coronary artery calcification within the heart Small hiatal hernia is present. Normal liver. Multiple calcified gallstones without evidence for acute inflammation Normal spleen. Normal pancreas. Normal bilateral adrenal glands. Small bilateral parapelvic cysts renal cysts.. Mild dilatation of the left ureter without evidence for obstructing calculus Normal visualized stomach. Normal small intestine. Diverticular changes of the descending colon without evidence for acute diverticulitis.. Appendix not visualized which may be consistent with prior appendectomy.. Atherosclerotic changes of the aorta without evidence for aneurysm. Normal inferior vena cava. Normal retroperitoneum. Small fat-containing umbilical hernia Nonspecific prominence of the prostate impinging upon the base of the bladder. Hypoattenuated structure along left lateral pelvic wall measuring 3.35 x 2.9 cm possibly representing lymphocele which seroma. Postsurgical changes status post herniorrhaphy of the left anterior pelvic wall. Small bilateral fat-containing inguinal hernias. Lumbar spine demonstrates moderate spondylosis. There is chronic compression of superior endplate of L4. CT/Abdomen/Pelvis W IV Cont ONLY IMPRESSION: Mild left hydroureter without significant hydronephrosis or evidence for obstructing calculus at this time which may be consistent with recent passage of stone however clinical correlation is recommend Nonspecific enlargement of prostate Diverticular changes in the descending colon without evidence for acute diverticulitis Other findings as above. Electronically Signed: Good Quinn MD at 17:53 EDT , Service support ,
[2019-02-17 17:00] LABS: Absolute Lymphocyte Count 0.91 X10^3/uL (0.83-4.51); Absolute Neutrophil Count 9.7 X10^3/uL (2.0-7.7); Basophil# 0.02 X10^3/uL; Basophil% 0.2 % (0-1); Eosinophil# 0.05 X10^3/uL; Eosinophils% 0.4 % (0-5); Hematocrit 46.7 % (40-54); Hemoglobin 15.2 g/dL (13.0-16.5); Lymphocyte # 0.91 X10^3/ul (4.0); Lymphocyte % 7.8 % (19-41); Mean Corp Hgb Conc 32.5 g/dL (32-36); Mean Corpuscular Hgb 32.6 pg (27.0-32.0); Mean Corpuscular Volume 100.2 fL (80-94); Mean Platelet Vol. 9.1 fl (6.2-12.0); Monocyte# 0.85 X10^3/uL; Monocyte% 7.3 % (0-10); NRBC Flagged by Analyzer 0 % (0-5); Neutrophil # 9.73 X10^3/uL (2.7-7.7); Platelet Count 172 K/mm3 (150-450); RBC Distribution Width CV 13.1 % (11.6-14.6); RBC Distribution Width SD 48.3 fl (35.1-43.9); Red Blood Count 4.66 M/mm3 (4.6-6.2); White Blood Count 11.6 K/mm3 (4.4-11.0)
[2019-02-17 17:14] LABS: AST(SGOT) 22 U/L (15-37); Alanine Aminotransfer ALT/SGPT 24 U/L (16-61); Albumin, Serum 3.8 g/dL (3.2-5.0); Alkaline Phosphatase 96 U/L (45-117); Anion Gap 4 (5-15); BUN 24 mg/dL (7-18); BUN/Creat Ratio 16.4 RATIO (10-20); Bilirubin, Direct 0.32 mg/dL (0.00-0.30); Calcium,Total 9.2 mg/dL (8.5-10.1); Chloride 107 mmol/L (98-107); Creatinine, Serum 1.46 mg/dL (0.70-1.30); EST Glomerular Filtration Rate 49 mL/min (>60); Est Glom Filt Rate - Afr Amer 59 mL/min (>60); Estimated Creatinine Clearance 35.21 ml/min; Globulin 4.2 g/dL (2.2-4.2); Glucose 127 mg/dL (74-106); Lipase 115 U/L (73-393); Potassium 4.4 mmol/L (3.5-5.1); Sodium Level 139 mmol/L (136-145)
[2019-02-17 17:46] LABS: Bacteria 0 SEEN /hpf (None Seen); Mucous, Urine 0 SEEN /hpf (<or=2+); Squamous Epithelial Cells - UA 0 SEEN /hpf (0-5)
[2019-02-17 17:50] LABS: Color, Urine Yellow (Yellow); Glucose, Dipstick Normal (Normal); Ketone-Dipstick Negative (Negative); Leukocyte Esterase-Dipstick 25 /ul (Negative); Nitrite-Dipstick Negative (Negative); Occult Blood-Urine Negative /ul (Negative); Protein-Dipstick 15 mg/dl (Negative); Urine Bilirubin Dipstick Negative (Negative); Urine Clarity Clear (Clear); Urine Urobilinogen Normal (Normal)
[2019-02-17 17:51] VITALS: BP 159/88; PULSE 63; RESP 16; O2SAT 96
[2019-02-17 18:02] LABS: Red Blood Cells-Urine 0-5 SEEN /hpf (0-5); White Blood Cells 0-5 SEEN /hpf (0-5)
--- NOTE | 2019-02-17 18:15 | ED.VISSUMM ---
- ER Visit Summary Date of Service: 02/17/19 Chief Complaint: [Abdomen/flank pain] History of Present Illness: The patient is a 83 M [presents to the emergency department with sudden onset of pain this morning around 5 AM. Patient describes the pain in his left back as well as mid abdomen. He has had no nausea or vomiting. He rates his pain currently as a 4 out of 10. Patient states that at home he was feeling like he needed to have a bowel movement but could not. He denied any hematuria. He denied any frequency, urgency, or dysuria. Patient is never had pain like this before. Patient does have a history of coronary artery disease as well as hypertension and high cholesterol.] Physical Examination: [HEENT-PERRLA, EOMI. Cranial nerves II through XII grossly intact. TMs clear. Mucous membranes moist. No adenopathy. Cardiovascular-regular rate and rhythm without murmur or ectopy Lungs-clear to auscultation, chest wall stable without crepitus or subcu emphysema Abdomen-normoactive bowel sounds, soft. Patient has some tenderness in the mid abdomen without any rebound or rigidity. No real guarding noted. Patient also with CVA tenderness on the left. Extremities-intact ?4, normal range of motion, normal pulses, atraumatic] Test Results: [CBC with differential showed a slightly elevated white count of 11.6, hemoglobin 15, hematocrit 47, plates 172. Chemistries unremarkable. BUN was 24 and creatinine 1.46. Total bili was 1.3. LFTs were unremarkable and lipase was 115. Urinalysis showed no signs of infection. CT flank showed left hydroureter and they are questioning a recently passed kidney stone otherwise nothing acute or significant on the CT.] Emergency Department Course and Treatment: [Patient did not want anything for pain in the emergency department and he states that his left leg pain is mostly resolved at this time and has minimal discomfort in the mid abdomen.] Treatment Plan: [He should follow-up with his primary care physician 3 to 5 days. Patient advised to return if worsening pain, fever, vomiting, or condition should worsen anyway.] Disposition: [Discharged to home in stable condition] Impression: [Recently passed kidney stone Abdominal pain] This note was generated with [employer] dictation software. It may contain incorrect words, spelling, and punctuation that were not noted in review of the chart prior to signing ED Disposition - Plan for ED Patient: Referrals: Melissa Cui MD [Primary Care Provider] -
--- NOTE | 2019-02-17 18:18 | ED.DEP ---
ED Disposition - Plan for ED Patient: Instructions: KIDNEY STONE, Passed Referrals: Melissa Cui MD [Primary Care Provider] - 3-5 Days
== END 2019-02-17 18:25 | disposition home or self-care (01) ==
PROVIDERS: Emergency Provider Emergency Medicine; Family Provider Family Medicine; PCP Family Medicine
DX: R10.9 Unspecified abdominal pain (principal); Z87.442 Personal history of urinary calculi; I25.10 Atherosclerotic heart disease of native coronary artery without angina pectoris; I10 Essential (primary) hypertension; E78.00 Pure hypercholesterolemia, unspecified; Z79.82 Long term (current) use of aspirin; Z79.899 Other long term (current) drug therapy
CPT/HCPCS: 74177; 80048; 80076; 81001; 83690; 85025; 99283; Q9967; A4216

== ENCOUNTER → 2019-07-14 09:05 | Outpatient (CLI) | payer MEDICARE, SELFPAY ==
[2019-07-14 10:49] LABS: AST(SGOT) 23 U/L (15-37); Alanine Aminotransfer ALT/SGPT 24 U/L (16-61); Albumin, Serum 3.5 g/dL (3.2-5.0); Alkaline Phosphatase 83 U/L (45-117); Bilirubin, Direct 0.24 mg/dL (0.00-0.30); Cholesterol 121 mg/dL (200); Globulin 3.7 g/dL (2.2-4.2); High Density Lipoprotein 53 mg/dL; Protein, Total 7.2 g/dL (6.4-8.2); Triglycerides 84 mg/dL; Very Low Density Lipoprotein 17 mg/dL (5-40)
== END ==
PROVIDERS: PCP Family Medicine; Referring Provider Internal Medicine Cardiovascular Disease; Visit Provider Internal Medicine Cardiovascular Disease
DX: I25.10 Atherosclerotic heart disease of native coronary artery without angina pectoris (principal); E78.5 Hyperlipidemia, unspecified
CPT/HCPCS: 36415; 80061; 80076

== ENCOUNTER 2020-07-26 08:48 | Outpatient (RCR) | payer MEDICARE, SELFPAY ==
[2019-07-18 08:09] VITALS: BMI 35.2
== END 2020-07-26 23:59 ==
LOC: IMMUN 08:48
PROVIDERS: PCP Family Medicine; Visit Provider Family Medicine
DX: Z23 Encounter for immunization (principal)
CPT/HCPCS: 0011A; 0012A; 91301

== ENCOUNTER → 2020-08-20 11:03 | Outpatient (CLI) | payer MEDICARE, SELFPAY ==
[2019-07-18 08:09] VITALS: BMI 35.2
[2020-08-20 15:50] LABS: AST(SGOT) 25 U/L (15-37); Alanine Aminotransfer ALT/SGPT 24 U/L (16-61); Anion Gap 7 (5-15); BUN 17 mg/dL (7-18); BUN/Creat Ratio 18.6 RATIO (10-20); Calcium,Total 8.9 mg/dL (8.5-10.1); Chloride 105 mmol/L (98-107); Cholesterol 130 mg/dL (200); Creatinine, Serum 0.91 mg/dL (0.70-1.30); EST Glomerular Filtration Rate 84 mL/min (>60); Est Glom Filt Rate - Afr Amer 101 mL/min (>60); Glucose 90 mg/dL (74-106); High Density Lipoprotein 62 mg/dL; Potassium 3.9 mmol/L (3.5-5.1); Sodium Level 139 mmol/L (136-145); Triglycerides 85 mg/dL; Very Low Density Lipoprotein 17 mg/dL (5-40)
[2020-08-20 16:01] LABS: Microalbumin:Creatinine Ratio 139.7 mg/g CRE (<30 mg/g CRE)
== END ==
PROVIDERS: PCP Family Medicine; Referring Provider Family Medicine; Visit Provider Family Medicine
DX: E78.00 Pure hypercholesterolemia, unspecified (principal); I10 Essential (primary) hypertension
CPT/HCPCS: 36415; 80048; 80061; 82043; 82570; 84450; 84460

== ENCOUNTER → 2021-02-18 10:43 | Outpatient (CLI) | payer MEDICARE, SELFPAY ==
[2021-02-18 12:38] LABS: AST(SGOT) 24 U/L (15-37); Alanine Aminotransfer ALT/SGPT 21 U/L (16-61); Anion Gap 3 (5-15); BUN 19 mg/dL (7-18); BUN/Creat Ratio 20.8 RATIO (10-20); Calcium,Total 8.7 mg/dL (8.5-10.1); Chloride 108 mmol/L (98-107); Cholesterol 127 mg/dL (200); Creatinine, Serum 0.92 mg/dL (0.70-1.30); EST Glomerular Filtration Rate 83 mL/min (>60); Est Glom Filt Rate - Afr Amer 101 mL/min (>60); Glucose 102 mg/dL (74-106); High Density Lipoprotein 58 mg/dL; Sodium Level 141 mmol/L (136-145); Triglycerides 91 mg/dL; Very Low Density Lipoprotein 18 mg/dL (5-40)
== END ==
PROVIDERS: PCP Family Medicine; Referring Provider Family Medicine; Visit Provider Family Medicine
DX: I10 Essential (primary) hypertension (principal); E78.00 Pure hypercholesterolemia, unspecified
CPT/HCPCS: 36415; 80048; 80061; 84450; 84460

== ENCOUNTER → 2021-03-05 13:56 | Outpatient (CLI) | payer MEDICARE, SELFPAY ==
--- NOTE | 2021-03-05 14:00 | VDLE_ITS ---
Reason For Study: Pain, Edema RIGHT GSV is normal. CFV is compressible, spontaneous, phasic, competent and demonstrates normal augmentation. FV is compressible, spontaneous, phasic, competent and demonstrates normal augmentation. POP V is compressible, spontaneous, phasic, competent and demonstrates normal augmentation. T/P Trunk is compressible. PTV is compressible. RT PerV is compressible. Procedure This is a venous duplex using B-mode, color flow and spectral Doppler. Exam performed in department. A preliminary report was called and/or faxed to [place]. VL/Venous Duplex US, Unilateral Interpretation Summary Deep veins of the right lower extremity are patent and compressible segmentally . There is no evidence of right lower extremity deep vein thrombosis. Valvular competence jacinto ears intact within the proximal deep venous system on the right . The right great saphenous vein a ppears patent and compressible segmentally. Ordering Physician: Melissa Cui Referring Physician: Melissa Cui Performed By: Ailyn Mazariegos RVT
== END ==
PROVIDERS: PCP Family Medicine; Referring Provider Family Medicine; Visit Provider Family Medicine
DX: R60.0 Localized edema (principal); M79.661 Pain in right lower leg
CPT/HCPCS: 93971

== ENCOUNTER 2022-01-26 19:06 | Emergency (ER) | payer MEDICARE, SELFPAY ==
[2022-01-26 19:07] VITALS: BP 140/104; PULSE 73; RESP 16; TEMP 37.3; O2SAT 93; BMI 32.5
--- NOTE | 2022-01-26 19:40 | EX.ED.UPPERE ---
HPI History of Present Illness HPI Narrative: Presents with right wrist and hand pain and swelling to begin after a fall. Patient states he tripped while crossing the street yesterday. Patient states he fell forward. Patient states he landed on his outstretched hands. Patient states he hit his nose and upper lip when he fell as well. Patient denies any loss of consciousness. Patient describes his pain is sharp. Patient states it is worse with certain movements. Patient states his last tetanus was within 5 years. Patient denies any other injuries. Chief Complaint: Upper Extremity Injury Informant: patient Occured/Mechanism Mechanism/Context: Yes fall and Yes same level fall Onset/Context/Timing Onset: Yesterday Timing: Continuous Quality of Pain: Sharp Location: Right hand and wrist Worsened by: Movement Relieved by: Rest Associated Symptoms Associated Symptoms: Negative for Parasthesia, Weakness or Loss of Funtion Narrative Tetanus Immunization: <5 years [facility] Medical History Atherosclerosis of coronary artery of [place] heart without angina pectoris History of myocardial infarction Hyperlipidemia Left bundle branch block Osteoarthritis Paroxysmal atrial fibrillation Patent foramen ovale Home Medications aspirin 325 mg tablet 325 mg PO QDAY 01/25/18 [History Last Taken Unknown] lisinopril 5 mg tablet 5 mg PO DAILY #90 tabs 04/29/21 [Rx Last Taken Unknown] metoprolol succinate 25 mg tablet,extended release 24 hr See Rx Instructions .Route .COMPLEX #45 tabs 06/06/21 [Rx Last Taken Unknown] atorvastatin 80 mg tablet 80 mg PO QHS #90 tabs 07/22/21 [Rx Last Taken Unknown] Allergy/AdvReac Type Severity Reaction Status Date / Time clopidogrel [From Plavix] Allergy Intermediate Unknown Verified 01/26/22 19:20 Penicillins [PCN] Allergy Swelling Verified 01/26/22 19:20 venom-honey bee AdvReac Other Verified 01/26/22 19:20 [bee venom (honey bee)] Family History (Updated 01/14/19 @ 09:40 by Harper Hamlin) Mother Heart disease Surgical History History of appendectomy History of bilateral knee replacement History of left inguinal hernia repair History of percutaneous transluminal coronary angioplasty (~10/2009) Social History Smoking Status: Never smoker alcohol intake: current caffeine: Yes ROS ROS ED Constitutional Constitutional ED: Denies chills or fever(s) Eyes Eyes: Denies blurry vision or change in vision ENT ENT ED: Denies rhinorrhea or sore throat Cardiovascular Cardiovascular: Denies chest pain or palpitations Respiratory/Chest Respiratory/Chest: Denies cough or dyspnea Gastrointestinal Gastrointestinal: Reports nausea and vomiting Genitourinary Genitourinary ED: Denies dysuria or hematuria Musculoskeletal Musculoskeletal: Denies back pain or neck pain Integumentary Reports Abrasions; Denies abscess or rash Neurologic Neurologic: Denies headache(s) or weakness Allergic/Immunologic Allergic/Immunologic ED: Denies mouth swelling or urticaria EXAM Physical Exam Const Vital Signs: 01/26/22 19:07 Temperature 99.1 F Temperature Source Temporal Pulse Rate 73 Respiratory Rate 16 Blood Pressure 140/104 H Blood Pressure Mean 116 Pulse Ox 93 Oxygen Delivery Method Room Air Positive well nourished and well developed General Appearance ED: well developed and NAD HEENT Reports moist mucous membranes HEENT Narrative: There is some edema and ecchymosis over the upper lip. Teeth are intact. Nasal mucosa is pink and moist. There is no septal deviation or septal hematoma. There is an abrasion over the anterior aspect of the nose and upper lip. There is no active bleeding. Eyes PERRL and EOMs intact bilaterally Neck full ROM and supple Extremity Extremity Narrative: There is tenderness, edema, and ecchymosis over the right hand and wrist. There is some mild tenderness over the anatomic snuffbox. There is no obvious deformity. Range of motion was limited in all motions of the right hand and wrist secondary to pain. Sensation was intact to light touch in the radial, median, and ulnar areas. Strength is 5/5 in the radial, median, and ulnar areas. Radial pulses are equal bilaterally. Neuro oriented x3, CN's II-XII intact bilaterally, moves all extremities, no focal motor deficits and no sensory deficits noted Sensorium / Orientation: alert Motor Exam: strength 5/5 throughout Psych mental status grossly normal Skin Skin Narrative: There are superficial abrasions over the thumbs bilaterally on the palmar surface. There is no active bleeding. MDM MDM MDM Narrative Medical decision making narrative: X-rays of the right wrist were obtained. There are 3 views. On my interpretation, there is no acute fracture. There is no dislocation. There is some mild soft tissue swelling. There are degenerative changes noted. Radiologist also interpreted the x-rays and agrees. Patient was advised of her findings. Patient was given a cock-up wrist splint. Patient was instructed to take Tylenol or ibuprofen as needed for pain. Patient was instructed to follow-up with his primary care physician in 5 to 7 days. Patient understood and was agreeable with the plan. All questions were answered. Discharge Plan Triage Chief Complaint: Upper Extremity Injury ED Provider: Juan R Maria Dx/Rx/DC Orders Clinical Impression: Right wrist sprain, Abrasion of face Instructions: ED Wrist Sprain Prescriptions: No Action aspirin 325 mg tablet 325 mg PO QDAY lisinopril 5 mg tablet 5 mg PO DAILY Qty: 90 3RF metoprolol succinate 25 mg tablet extended release 24 hr See Rx Instructions .ROUTE .COMPLEX Qty: 45 3RF Dose Instruction: TAKE ONE-HALF (1/2) TABLET DAILY Rx Instructions: TAKE ONE-HALF (1/2) TABLET DAILY atorvastatin 80 mg tablet 80 mg PO QHS Qty: 90 3RF Primary Care Provider: Melissa Cui Referrals: Melissa Cui MD [Primary Care Provider] - 5-7 Days Disposition Disposition: Home, Self Care
--- NOTE | 2022-01-26 20:00 | RAD_ITS ---
STUDY: X-RAY - RIGHT WRIST REASON FOR EXAM: Male, 86 years old. Injury. Pain. Fell while walking yesterday after tripping over uneven pavement. TECHNIQUE: 3 view(s) of the wrist were obtained. COMPARISON: None. FINDINGS: There is demineralization of the radius and ulna. There is degenerative arthrosis of the radiocarpal articulation. Normal distal radioulnar articulation. There is demineralization of the carpal bones. There is degenerative arthrosis of the carpal articulations. There is degenerative arthrosis of the carpometacarpal articulation of the thumb. Normal second through fifth carpometacarpal articulations. There is demineralization of the metacarpal bones. Generalized soft tissue prominence. RAD/Wrist min 3 Views IMPRESSION: Osteopenia and degenerative changes of the wrist without acute fracture or dislocation. There is generalized soft tissue swelling. Electronically Signed: Ramesh Mtz DO at 20:40 EDT ,
[2022-01-26 21:19] VITALS: BP 160/82; PULSE 57; RESP 18; O2SAT 92
== END 2022-01-26 21:21 | disposition home or self-care (01) ==
PROVIDERS: Emergency Provider Emergency Medicine; PCP Family Medicine; Visit Provider Emergency Medicine
DX: S63.91XA Sprain of unspecified part of right wrist and hand, initial encounter (principal); I48.0 Paroxysmal atrial fibrillation; S00.81XA Abrasion of other part of head, initial encounter; E78.5 Hyperlipidemia, unspecified; I25.10 Atherosclerotic heart disease of native coronary artery without angina pectoris; I25.2 Old myocardial infarction; Z79.82 Long term (current) use of aspirin; Z79.899 Other long term (current) drug therapy; W18.30XA Fall on same level, unspecified, initial encounter
CPT/HCPCS: 73110; 99283

== ENCOUNTER → 2022-11-14 | Outpatient (CLI) | payer MEDICARE, SELFPAY ==
[2022-11-14 15:39] LABS: AST(SGOT) 27 U/L (15-37); Alanine Aminotransfer ALT/SGPT 17 U/L (16-61); Anion Gap 7 (5-15); BUN 18 mg/dL (7-18); BUN/Creat Ratio 21.3 RATIO (10-20); Chloride 106 mmol/L (98-107); Cholesterol 109 mg/dL (200); Creatinine, Serum 0.85 mg/dL (0.70-1.30); EST Glomerular Filtration Rate 91 mL/min (>60); Est Glom Filt Rate - Afr Amer 110 mL/min (>60); Glucose 97 mg/dL (74-106); High Density Lipoprotein 59 mg/dL; Potassium 3.7 mmol/L (3.5-5.1); Sodium Level 140 mmol/L (136-145); Triglycerides 67 mg/dL; Very Low Density Lipoprotein 13 mg/dL (5-40)
== END | disposition home or self-care (01) ==
LOC: MFPLAB 11:28
PROVIDERS: PCP Family Medicine; Visit Provider Family Medicine
DX: E78.00 Pure hypercholesterolemia, unspecified (principal); I10 Essential (primary) hypertension
CPT/HCPCS: 36415; 80048; 80061; 84450; 84460

== ENCOUNTER → 2022-12-09 | Outpatient (CLI) | payer MEDICARE, SELFPAY ==
--- NOTE | 2022-12-09 15:25 | RAD_ITS ---
EXAM: XR LEFT CLAVICLE COMPLETE, 2 OR MORE VIEWS CLINICAL INDICATION: deformity TECHNIQUE: Frontal and lordotic views of the left clavicle. COMPARISON: No relevant prior studies available. FINDINGS: BONES/JOINTS: Unremarkable. No acute fracture. No subluxation. Normal alignment. Preservation of the joint space. No sclerotic or destructive changes observed. SOFT TISSUES: Soft tissue swelling adjacent to the acromioclavicular joint. No radiopaque foreign body. RAD/Clavicle IMPRESSION: 1. Soft tissue swelling adjacent to the acromioclavicular joint. 2. No fracture. Electronically Signed: Shon Key MD at 1:20 EDT ,
--- NOTE | 2022-12-09 15:25 | RAD_ITS ---
ACR Level 3 findings have been noted. An addendum which confirms receipt of the report will follow. EXAM: XR LEFT SHOULDER COMPLETE, 2 OR MORE VIEWS CLINICAL INDICATION: deformitiy TECHNIQUE: Two or more views of the left shoulder. COMPARISON: No relevant prior studies available. FINDINGS: BONES/JOINTS: Erosive changes of of the cortex with some periosteal reaction involving the acromial end of the clavicle seen best on the transscapular Y view. No acute fracture. No subluxation. Normal alignment. Preservation of the joint space. SOFT TISSUES: Soft tissue swelling adjacent to the acromioclavicular joint. No radiopaque foreign body. RAD/Shoulder min 2 Views IMPRESSION: Erosive changes of of the cortex with some periosteal reaction involving the acromial end of the clavicle seen best on the transscapular Y view. Infection or neoplasm cannot be excluded. Consider MR for further evaluation. Electronically Signed: Shon Key MD at 1:26 EDT ,
== END | disposition home or self-care (01) ==
LOC: MTRAD 15:22
PROVIDERS: PCP Family Medicine; Referring Provider Family Medicine; Visit Provider Family Medicine
DX: M21.922 Unspecified acquired deformity of left upper arm (principal)
CPT/HCPCS: 73000; 73030

== ENCOUNTER → 2023-01-06 | Outpatient (CLI) | payer MEDICARE, SELFPAY ==
--- NOTE | 2023-01-06 11:04 | MRI_ITS ---
STUDY: MRI LEFT SHOULDER REASON FOR EXAM: Male, 87 years old. Left shoulder pain with lump. TECHNIQUE: Standardized fat and water weighted pulse sequences were obtained in all 3 orthogonal planes. COMPARISON: X-rays of the left shoulder dated December 09, 2022 showing sclerotic lesion in proximal humerus. FINDINGS: Marked supraspinatus and infraspinatus tendinosis with articular surface fraying without a partial-thickness or full-thickness tear (coronal series 4 images 5-13). Subscapularis tendinosis with thickening and articular surface fraying without a partial thickness or full thickness tear (axial series 2 images 12-17). Normal teres minor tendon. Normal supraspinatus muscle. Normal infraspinatus muscle. Normal subscapularis muscle. Normal teres minor muscle. Moderate to marked loss of articular cartilage of the glenohumeral joint with a moderate to large glenohumeral joint effusion (axial series 2 images 10-19). Large lesion in the metaphysis of the proximal left humerus with bone marrow edema surrounding it. Given the appearance radiographically and from an MR standpoint, this may represent a sclerotic metastatic deposit, most likely from prostate carcinoma (axial series 2 images 12-21, coronal series 5 images 2-11).. Normal biceps labral complex. Long head of biceps tendinosis with thickening. Fluid distention within the intertubercular sulcus which may represent biceps tenosynovitis (axial series 2 images 13-23). Nondisplaced superior labral tear (coronal series 4 image 14). Normal capsulo- ligamentous complex. Normal rotator interval. Large acromioclavicular joint effusion with AC joint hypertrophy resulting in narrowing of the subacromial space. Superior ganglion cyst associated with the AC joint (geyser sign) (coronal series 4 images 10-17). This superior ganglion cyst is compatible with the history of the palpable lesion. There is a Type II morphology (curved), with a neutral orientation. Fluid in the subacromial-subdeltoid bursa (coronal series 4 image 11). Normal visualized coracohumeral and coracoacromial ligaments. Normal quadrilateral space. Normal axillary space. Normal deltoid muscle. Normal trapezius muscle. MRI/Upper Ext Joint Only(Routine) IMPRESSION: Supraspinatus, infraspinatus and subscapularis tendinosis without a full-thickness or partial-thickness tear. 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 Sclerotic lesion in the proximal left humeral metaphyseal region which may represent a sclerotic metastasis (see discussion above). Long head of biceps tendinosis with tenosynovitis. Nondisplaced superior labral tear. Large AC joint effusion with AC joint hypertrophy resulting in narrowing of the subacromial space. Superior ganglion cyst associated with the AC joint (geyser sign). Large glenohumeral joint effusion with fluid in the subacromial-subdeltoid bursa. Electronically Signed: Jaime Heredia MD at 9:14 EDT ,
== END | disposition home or self-care (01) ==
LOC: MRI 11:03
PROVIDERS: PCP Family Medicine; Referring Provider Family Medicine; Visit Provider Family Medicine
DX: M21.922 Unspecified acquired deformity of left upper arm (principal)
CPT/HCPCS: 73221

== ENCOUNTER → 2023-02-09 | Outpatient (CLI) | payer MEDICARE, SELFPAY ==
[2023-02-09 16:52] LABS: PSA,Total - Annual Screen > 2000.00 ng/mL (0.00-4.00)
== END | disposition home or self-care (01) ==
LOC: MFPLAB 11:58
PROVIDERS: PCP Family Medicine; Visit Provider Family Medicine
DX: Z12.5 Encounter for screening for malignant neoplasm of prostate (principal)
CPT/HCPCS: 36415; 84153; G0103

== ENCOUNTER → 2023-03-18 | Outpatient (CLI) | payer MEDICARE, SELFPAY ==
--- NOTE | 2023-03-18 08:18 | NM_ITS ---
CLINICAL: 87-year-old male with history of primary prostate carcinoma. WHOLE BODY 99m Tc MDP RADIONUCLIDE BONE SCINTIGRAPHY COMPARISON: None available FINDINGS: Following the intravenous administration of 24.0 mCi of 99m Tc MDP, whole body bone images reveal: 1. Increased radiopharmaceutical concentration is defined in the bilateral hemicalvarium, multiple thoracic and lumbar vertebra, sternum, the right scapula, right and left anterior-posterior ribs, the bilateral hemipelvis, the distal right humeral diaphysis, the proximal left humeral metaphysis, right femoral neck. 2. Enhanced uptake is noted in the bilateral wrist articulations, the acromioclavicular compartment of the left shoulder, the patellofemoral compartments of both knees. 3. The remaining skeletal structures are scintigraphically unremarkable with normal-appearing renal images and urinary bladder activity identified. Facilitated uptake is noted in the femoral and tibial components of the presumably asymptomatic bilateral knee arthroplasties. NM/Bone Scan Whole Body IMPRESSION: 1. The increase in radiopharmaceutical concentration identified in the bilateral calvarium, the axial and appendicular skeleton is commensurate with osseous metastatic disease. 2. 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 Electronically Signed: Dominic Merrill DO at 22:54 EDT ,
== END | disposition home or self-care (01) ==
LOC: NM 08:13
PROVIDERS: PCP Family Medicine; Referring Provider Internal Medicine Hematology & Oncology; Visit Provider Internal Medicine Hematology & Oncology
DX: C61 Malignant neoplasm of prostate (principal)
CPT/HCPCS: 78306; A9503

== ENCOUNTER → 2024-03-28 | Outpatient (CLI) | payer MEDICARE, SELFPAY ==
[2024-03-28 15:49] LABS: BNP,B-Type NATRIURETIC PEPTIDE 82.5 pg/mL (0-100)
[2024-03-28 16:11] LABS: ALB/GLOB Ratio 0.9 RATIO (0.9-2.4); AST(SGOT) 27 U/L (15-37); Alanine Aminotransfer ALT/SGPT 18 U/L (16-61); Albumin, Serum 3.3 g/dL (3.2-5.0); Alkaline Phosphatase 88 U/L (45-117); Anion Gap 7 (5-15); BUN 34 mg/dL (7-18); Calcium,Total 9.1 mg/dL (8.5-10.1); Chloride 104 mmol/L (98-107); Creatinine, Serum 1.26 mg/dL (0.70-1.30); EST Glomerular Filtration Rate 57 mL/min (>60); Est Glom Filt Rate - Afr Amer 69 mL/min (>60); Globulin 3.7 g/dL (2.2-4.2); Glucose 120 mg/dL (74-106); Sodium Level 138 mmol/L (136-145)
== END | disposition home or self-care (01) ==
LOC: MFPLAB 12:21
PROVIDERS: PCP Family Medicine; Visit Provider Family Medicine
DX: R06.02 Shortness of breath (principal)
CPT/HCPCS: 36415; 80053; 83880